=== PATIENT | male | born 1990 | race Caucasian/White ===

== ENCOUNTER 2019-01-10 18:45 | Emergency (ER) | payer BC ==
[~2019-01-10] VITALS: Ht 190.5 cm; Wt 113.4 kg
[~2019-01-10 18:45] MED LIST: NKM
--- NOTE | 2019-01-10 19:00 | NUR ---
ED Nurse Note: Pt came in due to left thumb laceration after slicing meat with a knife. no active bleeding. Pt is AO x 4times, VSS, on room air no distress. ERMD seen Pt at bedside.
--- NOTE | 2019-01-10 19:23 | Emergency Room Report ---
History of Present Illness General Chief Complaint: Laceration Source: Patient Present Illness HPI 28-year-old male with history of chronic neuropathic pain here complaining of pain and bleeding from the left thumb after cutting some today with a knife. Patient reports minimal bleeding and rating the pain 5 out of 10 upon palpation of the affected area which is at the bottom nailbed. Patient is not up-to-date with his tetanus shot. Denies motor and sensory deficits. Denies pain radiation. Has not taken medication for his symptoms. Denies other injuries, chest pain, sense of breath, palpitation or other associated symptoms. Patient reports that he is from [facility] and has been taking gabapentin for his neuropathic pain for years however since he has moved to [place] in July 2018 has not yet established a primary care physician. Denies any new injuries. Allergies: Coded Allergies: No Known Allergies (Unverified , 11/30/15) Patient History Past Medical History: see triage record Past Surgical History: unable to obtain Pertinent Family History: none Immunizations: other - Tdap given today Reviewed Nursing Documentation: PMH: Agreed; PSxH: Agreed Nursing Documentation-PMH Past Medical History: No Stated History Review of Systems All Other Systems: negative except mentioned in HPI Physical Exam Vital Signs Date Time Temp Pulse Resp B/P (MAP) Pulse Ox O2 Delivery O2 Flow Rate FiO2 01/10/19 19:00 98.6 78 17 125/74 (91) 95 Room Air Sp02 EP Interpretation: reviewed, normal General Appearance: no apparent distress, alert, GCS 15, non-toxic Head: normocephalic, atraumatic Eyes: bilateral eye normal inspection, bilateral eye PERRL ENT: hearing grossly normal, normal pharynx, no angioedema, normal voice Neck: full range of motion, supple/symm/no masses Respiratory: chest non-tender, lungs clear, normal breath sounds, speaking full sentences Cardiovascular #1: regular rate, rhythm, no edema, normal capillary refill Cardiovascular #2: 2+ radial (R), 2+ radial (L) Gastrointestinal: normal inspection, non tender, soft Genitourinary: no CVA tenderness Musculoskeletal: back normal, gait/station normal, other - lac superficial nailbed Neurologic: alert, oriented x3, responsive, motor strength/tone normal, sensory intact, speech normal Skin: laceration - superficial nailbed left thumb Lymphatic: no adenopathy Procedures Laceration/Wound Repair Laceration/Wound Repair : Consent: Verbal Wound Location: upper extremity - left thumb Wound's Depth, Shape: superficial Wound Length (cm): 1 Wound Explored: clean Betadine Prep?: Yes Suture Size/Type: other - bacitricin and bandage, no repair needed due tobeing at the crease of nailbed Sterile Dressing Applied?: No Splint Applied?: No Sling Applied?: No Patient Tolerated: Well Complications: None Medical Decision Making PA Attestation All diagnoses and treatment plans were reviewed and discussed with my supervising physician Dr. Keller Diagnostic Impression: Primary Impression: Nailbed laceration, finger Additional Impressions: Medication refill Neuropathic pain ER Course 28-year-old male with history of chronic neuropathic pain here complaining of pain and bleeding from the left thumb after cutting some today with a knife. Patient reports minimal bleeding and rating the pain 5 out of 10 upon palpation of the affected area which is at the bottom nailbed. Patient is not up-to-date with his tetanus shot. Denies motor and sensory deficits. Denies pain radiation. Has not taken medication for his symptoms. Denies other injuries, chest pain, sense of breath, palpitation or other associated symptoms. Patient reports that he is from [facility] and has been taking gabapentin for his neuropathic pain for years however since he has moved to [place] in July 2018 has not yet established a primary care physician. Denies any new injuries. Ddx considered but are not limited to : Superficial laceration, deep laceration , tendon involvement with laceration, laceration with foreign body Vital signs: are WNL, pt. is afebrile H&PE are most consistent with: Superficial laceration of nailbed, medication refill for chronic neuropathic pain ORDERS: augmentin, Ibu, gabapentin ED INTERVENTIONS: Tdap, wound clean and dress DISCHARGE: At this time pt. is stable for d/c to home. Will provide printed patient care instructions, and any necessary prescriptions. Care plan and follow up instructions have been discussed with the patient prior to discharge. Follow-up with a primary care provider for establishing pain management take medication as directed Other X-Ray Diagnostic Results Other X-Ray Diagnostic Results : X-Ray ordered: Left finger # of Views/Limited Vs Complete: 3 View Indication: Other - Foreign body suspected EP Interpretation: Yes PA Xray: Interpretation reviewed, by supervising MD, and agrees with findings. Interpretation: no dislocation, no soft tissue swelling, no fractures, other - No foreign body noted Impression: No acute disease Electronically Signed by: Chris Muhammad PA-C Last Vital Signs Date Time Temp Pulse Resp B/P (MAP) Pulse Ox O2 Delivery O2 Flow Rate FiO2 01/10/19 19:00 98.6 78 17 125/74 (91) 95 Room Air Disposition: HOME, SELF-CARE Condition: Stable Scripts Ibuprofen* (MOTRIN*) 600 Mg Tablet 600 MG ORAL Q8H PRN for For Pain, #30 TAB 0 Refills Prov: Chris Beatty 01/10/19 Gabapentin* (GABAPENTIN*) 300 Mg Capsule 300 MG ORAL THREE TIMES A DAY for 3 Days, #10 CAP 0 Refills Prov: Chris Beatty 01/10/19 Amoxicillin/Potassium Clav 875-125* (AUGMENTIN 875-125 TABLET*) 1 Each Tablet 1 TAB ORAL TWICE A DAY for 7 Days, #14 TAB Prov: Chris Beatty 01/10/19 Patient Instructions: Laceration Care, Adult, Neuropathic Pain Additional Instructions: Take medication as directed follow-up with your primary care provider for further refills. Chris Beatty Jan 10, 2019 19:23
[2019-01-10 19:27] VITALS: BP 132/80
[2019-01-10] MEDS ORDERED: Neosporin Oint Ud Pkt TOPIC ONE (19:30)
[2019-01-10] MEDS ORDERED: Tetanus/Diptheria/Pertussis IM ONE (19:30)
--- NOTE | 2019-01-10 19:32 | NUR ---
ED Nurse Note: X ray at bedside.
[2019-01-10] MEDS ORDERED: AUGMENTIN 875-1 EAC1 ORAL (19:36)
[2019-01-10] MEDS ORDERED: GABAPENTIN300 MG ORAL (19:36)
[2019-01-10] MEDS ORDERED: IBUPROFEN600 MG ORAL (19:36)
--- NOTE | 2019-01-10 19:47 | NUR ---
ED Nurse Note: pt cleared to be d/c per ERMD, pt discharge and after care instruction provided w/ prescription, pt education done via discussion and handout, pt advised to follow up with pcp or return to ed if changes in condition, vss, ambulatory w/ steady gait, left w/ all belongings.
[2019-01-10 19:49] VITALS: BP 128/75
--- NOTE | 2019-01-11 09:20 | Diagnostic Imaging Report ---
Indication: Left thumb pain, suspected foreign body Technique: 3 views of the left thumb Comparison: none Findings: No acute fractures. No dislocations. The joint spaces are preserved. No radiopaque foreign body is demonstrated. Impression: Negative
== END 2019-01-10 19:53 | disposition home or self-care (01) ==
LOC: EMR 19:30
DX: S61.112A Laceration without foreign body of left thumb with damage to nail, initial encounter (principal); Z23 Encounter for immunization; M79.2 Neuralgia and neuritis, unspecified; Z76.0 Encounter for issue of repeat prescription; W26.0XXA Contact with knife, initial encounter; Y92.9 Unspecified place or not applicable
CPT/HCPCS: 90471; 90715; 99283